=== PATIENT | female | born 2000 | race Caucasian/White ===

== ENCOUNTER 2021-05-22 06:54 | Emergency (ER) | payer OTHER ==
[~2021-05-22] VITALS: Ht 154.9 cm; Wt 53.6 kg
[2021-05-22] MEDS ORDERED: birth control PO (07:01)
[2021-05-22] MEDS ORDERED: GI COCKTAIL 50ML BTL(HYOSCYAMINE/MAALOX/LIDOCAINE VISCOUS)(1:3:1) PO ONE (07:25)
[2021-05-22 08:17] LABS: BASO % 0.8 % (0.0-1.0); EOS % 0.2 % (0.0-3.0); HEMATOCRIT 40.6 % (36.0-47.0); HEMOGLOBIN 13.3 g/dl (12.0-15.5); LYMPH # 1.7 10^3/uL (1.5-5.0); LYMPH % 32.4 % (24.0-44.0); MEAN CORPUSCULAR HEMOGLOBIN 31.1 pg (27.0-33.0); MEAN CORPUSCULAR HGB CONC 32.8 g/dl (32.0-36.5); MEAN CORPUSCULAR VOLUME 94.9 fl (80.0-96.0); MONO # 0.3 10^3/uL (0.0-0.8); MONO % 5.9 % (2.0-8.0); NEUTROPHILS # 3.1 10^3/uL (1.5-8.5); NEUTROPHILS % 60.5 % (36.0-66.0); PLATELET COUNT, AUTOMATED 242 10^3/uL (150-450); RED BLOOD COUNT 4.28 10^6/uL (4.00-5.40); WHITE BLOOD COUNT 5.1 10^3/uL (4.0-10.0)
--- NOTE | 2021-05-22 08:18 | REP ---
INDICATION: epigastric pain COMPARISON: None. TECHNIQUE: Portable AP view of the chest FINDINGS: The mediastinum and cardiac silhouette are stable and within normal limits for portable technique. The lung guajardo are clear without acute consolidation, effusion, or pneumothorax. Skeletal structures are intact. IMPRESSION: No acute cardiopulmonary process appreciated. <Electronically signed by Sourav Castro > 05/22/21 [id number]
[2021-05-22 08:47] LABS: ALBUMIN 3.9 GM/DL (3.2-5.2); ALT/SGPT 18 U/L (12-78); BILIRUBIN,DIRECT 0.2 MG/DL (0.0-0.2); BILIRUBIN,TOTAL 0.7 MG/DL (0.2-1.0); BLOOD UREA NITROGEN 10 MG/DL (7-18); CALCIUM LEVEL 9.2 MG/DL (8.5-10.1); CARBON DIOXIDE LEVEL 25 MEQ/L (21-32); CHLORIDE LEVEL 108 MEQ/L (98-107); CK-MB VALUE MASS < 1.0 NG/ML (<3.6); CPK CREATINE PHOSPHOKINASE 84 U/L (26-192); CREATININE FOR GFR 0.67 MG/DL (0.55-1.30); GLUCOSE, FASTING 84 MG/DL (70-100); LIPASE 95 U/L (73-393); MB/CK RELATIVE INDEX 1.19 (< OR =4); POTASSIUM SERUM 4.2 MEQ/L (3.5-5.1); SODIUM LEVEL 142 MEQ/L (136-145); TROPONIN I < 0.02 NG/ML (< 0.10)
[2021-05-22] MEDS ORDERED: OMEP40CA4 PO (09:37)
[2021-05-22] MEDS ORDERED: CARA1TAB6 PO (09:37)
[2021-05-22 09:53] VITALS: BP 113/73
--- NOTE | 2021-05-23 16:31 | ECGEPIP ---
[facility] - ED Test Date: 2021-05-22 Pat Name: ANDREW VALDES Department: Room: - Gender: Female Financial Aid Advisor: MANISHA : [id number] Requested By: SVETLANA Haney PA-C Order Number: [id number] Reading MD: Mauricio Mac Measurements Intervals [place] Rate: 70 P: 5 CT: 120 QRS: 16 QRSD: 78 T: 41 QT: 376 QTc: 406 Interpretive Statements Normal sinus rhythm with sinus arrhythmia Comparison tracing not on file Electronically Signed on 05-23-2021 16:30:55 EDT by Mauricio Mac
== END 2021-05-22 09:55 | disposition home or self-care (01) ==
LOC: M ED 06:54
DX: K29.70 Gastritis, unspecified, without bleeding (principal); K21.9 Gastro-esophageal reflux disease without esophagitis; R10.13 Epigastric pain; F17.290 Nicotine dependence, other tobacco product, uncomplicated; Z79.3 Long term (current) use of hormonal contraceptives; Z79.899 Other long term (current) drug therapy